=== PATIENT | male | born 1965 ===

== ENCOUNTER 2024-07-16 07:28 | Day surgery (SDC) | payer OTHER ==
[2024-07-13 12:45] VITALS: BP 131/87
[~2024-07-16] VITALS: Ht 175.3 cm; Wt 122.9 kg
[~2024-07-16 07:28] MED LIST: COZAAR25 MG; CRESTOR40 MG PO; DOLOGESIC 500-1 EACH PO; FARXIGA10 MG PO; LIPOFEN150 MG; METFORMIN HCL1000 M2 PO; PNEU16DI2; RESTONE CAPSUL1 EACH; ZESTRIL10 M1 PO
[2024-07-16] MEDS ORDERED: CEFTRIAXONE SODIUM 2,000 MG VIAL ONE (10:47)
[2024-07-16] MEDS ORDERED: BUPIVACAINE HCL/MPF 0.5% 30ML VIAL ONE (10:47)
[2024-07-16] MEDS ORDERED: DIBUCAINE 30 GM TUBE ONE (10:47)
[2024-07-16] MEDS ORDERED: LIDOCAINE HCL 1%/EPINEPHRINE 20ML VIAL IJ ONE (10:48)
[2024-07-16] MEDS ORDERED: METRONIDAZOLE/SODIUM CHLORIDE 500 MG/100 ML PIGGYBACK IV ONE (10:48)
[2024-07-16] MEDS ORDERED: HEMOSTATIC MATRIX 1 KIT KIT TOP ONE (10:48)
[2024-07-16] MEDS ORDERED: POVIDONE-IODINE 118 ML BOTT TOP ONE (10:48)
[2024-07-16] MEDS ORDERED: RECTICARE30 GM TOP (12:06)
[2024-07-16] MEDS ORDERED: PERCOCET 5-3251 EACH PO (12:06)
== END 2024-07-16 16:00 | disposition home or self-care (01) ==
LOC: CIR.AMB 07:28
PROVIDERS: ATTEND Surgery
DX: K60.322 Anal fistula, complex, persistent (principal); K60.50 Anorectal fistula, unspecified